=== PATIENT | male | born 1960 | race Caucasian/White ===

== ENCOUNTER 2021-06-21 15:08 | Inpatient (IN) | payer MEDICARE, OTHER ==
[~2021-06-21] VITALS: Ht 182.9 cm; Wt 83.9 kg
[2021-06-21 16:08] LABS: HEMATOCRIT. 32.1 % (42.0-52.0); HEMOGLOBIN. 10.8 g/dL (14.0-18.0); MEAN CORPUSCULAR HEMOGLOBIN 32.5 pg (28.0-32.0); MEAN CORPUSCULAR VOLUME 96.8 fL (80.0-94.0); MEAN PLATELET VOLUME 8.6 fl (7.4-10.4); PLATELET 96 x1000/uL (130-400); RED BLOOD CELL COUNT 3.31 mill/uL (4.7-6.1); RED CELL DISTRIBUTION WIDTH 14.7 % (11.6-14.6)
[2021-06-21 16:13] LABS: CHLORIDE 105 mEq/L (98-107)
[2021-06-21 16:16] LABS: ETHANOL BLOOD < 10 mg/dL
[2021-06-21 16:47] LABS: PLATELET ESTIMATE DECREASED
[2021-06-21] MEDS ORDERED: FUROSEMIDE 100MG/10ML VIAL IV STA (20:46)
[2021-06-21] MEDS ORDERED: DOCUSATE SODIUM 100MG CAPSULE PO PRN (21:00)
[2021-06-21] MEDS ORDERED: TETANUS, DIPHTHERIA, PERTUSSIS VAC/PF 0.5ML (>10YR OLD) IM ONE (21:00)
[2021-06-21] MEDS ORDERED: NITROGLYCERIN 0.4MG TABLET SL SL PRN (21:00)
[2021-06-21] MEDS ORDERED: DIPHENHYDRAMINE 50MG/ML VIAL IV PRN (21:00)
[2021-06-21] MEDS ORDERED: TRAMADOL 50MG TABLET PO PRN (21:00)
[2021-06-21] MEDS ORDERED: DEXTROSE 50% WATER 50ML SYRINGE IV ONE (21:00)
[2021-06-21] MEDS ORDERED: ONDANSETRON HCL 4MG/2ML INJ IV PRN (21:00)
[2021-06-21] MEDS ORDERED: CALCIUM GLUCONATE 100MG/ML 10ML VIAL IV ONE (21:00)
[2021-06-21] MEDS ORDERED: MAGNESIUM/ALUMINUM HYDROXIDE/SIMETHICONE 30ML UDC PO PRN (21:00)
[2021-06-21] MEDS ORDERED: DEXTROSE 50% WATER 50ML SYRINGE IV PRN (21:00)
[2021-06-21] MEDS ORDERED: GUAIFENESIN 200MG/10ML SUGAR FREE UDC PO PRN (21:00)
[2021-06-21] MEDS ORDERED: ALBUTEROL (0.083%) 2.5MG/3ML NEB HHN ONE (21:00)
[2021-06-21] MEDS ORDERED: IPRATROPIUM/ALBUTEROL 0.5-3(2.5)MG/3ML NEB NEB PRN (21:00)
[2021-06-21] MEDS ORDERED: INSULIN REGULAR (HUMULIN R) 300UNITS/3ML VIAL IV ONE (21:00)
[2021-06-21] MEDS ORDERED: CLONIDINE 0.1MG TABLET PO PRN (21:00)
[2021-06-21] MEDS ORDERED: ACETAMINOPHEN 325MG TABLET PO PRN ×2 (21:00)
[2021-06-21] MEDS ORDERED: SODIUM POLYSTYRENE SULFONATE 15 G/60 ML BOT PO NR (21:00)
[2021-06-21] MEDS ORDERED: ZOLPIDEM TARTRATE 5MG TABLET PO PRN (21:00)
[2021-06-21] MEDS ORDERED: ENOXAPARIN 100MG/ML SYR SUBCUT NR (21:28)
[2021-06-21 22:35] LABS: FOLIC ACID (FOLATE) SERUM >20 ng/mL ng/mL (>5.38)
[2021-06-21 22:46] LABS: VITAMIN B12 SERUM 1049 pg/mL (211-911)
[2021-06-22 00:42] LABS: CREATINE KINASE MB FRACTION 4.1 ng/mL (0.5-3.6)
[2021-06-22 01:00] VITALS: BP_SYST 116; BP_SYST 124; BP_DIAS 82
[2021-06-22 04:00] VITALS: BP 112/68
[2021-06-22] MEDS: BLOOD SUGAR DIAGNOSTIC STRIP TEST SCH ×3 (07:40→16:51)
[2021-06-22 08:00] VITALS: BP 130/60
[2021-06-22] MEDS: INSULIN LISPRO 100 UNITS/ML SUBCUT SCH ×4 (08:10→22:38)
[2021-06-22] MEDS: ASPIRIN 325MG EC TABLET PO SCH (08:22)
[2021-06-22] MEDS: SEVELAMER CARBONATE 800 MG TABLET PO SCH ×3 (08:22→17:28)
[2021-06-22 08:28] LABS: HEMATOCRIT. 31.4 % (42.0-52.0); HEMOGLOBIN. 10.5 g/dL (14.0-18.0); MEAN CORPUSCULAR HEMOGLOBIN 32.3 pg (28.0-32.0); MEAN CORPUSCULAR VOLUME 96.8 fL (80.0-94.0); MEAN PLATELET VOLUME 9.1 fl (7.4-10.4); PLATELET 95 x1000/uL (130-400); RED BLOOD CELL COUNT 3.25 mill/uL (4.7-6.1)
[2021-06-22 08:59] LABS: INR 1.2; PROTHROMBIN TIME 12.3 sec (9.6-11.0)
[2021-06-22] MEDS ORDERED: NALOXONE HCL 0.4MG/ML VIAL IV PRN (09:30)
[2021-06-22] MEDS ORDERED: ENOXAPARIN 100MG/ML SYR SUBCUT SCH (10:00)
[2021-06-22 11:13] LABS: CHLORIDE 105 mEq/L (98-107)
[2021-06-22 11:20] LABS: PHOSPHORUS 7.9 mg/dL (2.5-4.9)
[2021-06-22 11:22] LABS: CREATINE KINASE 171 IU/L (39-308)
[2021-06-22 11:26] LABS: CREATINE KINASE MB FRACTION 3.9 ng/mL (0.5-3.6)
[2021-06-22 12:00] VITALS: BP 114/74
[2021-06-22 16:00] VITALS: BP 105/76
[2021-06-22] MEDS: METOPROLOL TARTRATE 25MG TABLET PO SCH ×2 (17:00→21:07)
[2021-06-22 19:15] LABS: PLATELET ESTIMATE DECREASED
[2021-06-22 20:00] VITALS: BP 104/64
[2021-06-22] MEDS: FAMOTIDINE 20MG TABLET PO SCH (23:01)
[2021-06-23 00:05] VITALS: BP 108/70
[2021-06-23 04:00] VITALS: BP 106/63
[2021-06-23] MEDS: BLOOD SUGAR DIAGNOSTIC STRIP TEST SCH ×4 (07:33→21:00)
[2021-06-23 08:00] VITALS: BP 120/69
[2021-06-23 08:11] LABS: BASOPHILS % 0.8 % (0.0-2.0); EOSINOPHILS % 1.1 % (0.0-5.0); HEMATOCRIT. 31.1 % (42.0-52.0); HEMOGLOBIN. 10.3 g/dL (14.0-18.0); LYMPHOCYTES % 10.1 % (20.0-50.0); MEAN CORPUSCULAR HEMOGLOBIN 32.1 pg (28.0-32.0); MEAN CORPUSCULAR VOLUME 96.6 fL (80.0-94.0); MEAN PLATELET VOLUME 9.1 fl (7.4-10.4); PLATELET 90 x1000/uL (130-400); RED BLOOD CELL COUNT 3.22 mill/uL (4.7-6.1); RED CELL DISTRIBUTION WIDTH 14.8 % (11.6-14.6)
[2021-06-23] MEDS: ASPIRIN 325MG EC TABLET PO SCH (08:33)
[2021-06-23] MEDS: SEVELAMER CARBONATE 800 MG TABLET PO SCH ×3 (08:33→17:47)
[2021-06-23] MEDS: METOPROLOL TARTRATE 25MG TABLET PO SCH ×2 (08:33→21:00)
[2021-06-23] MEDS: INSULIN LISPRO 100 UNITS/ML SUBCUT SCH ×4 (08:36→21:20)
[2021-06-23] MEDS: ENOXAPARIN 100MG/ML SYR SUBCUT SCH (08:37)
[2021-06-23 08:43] LABS: PHOSPHORUS 5.9 mg/dL (2.5-4.9)
[2021-06-23 12:00] VITALS: BP 118/74
[2021-06-23 16:00] VITALS: BP 98/68
[2021-06-23 20:00] VITALS: BP 138/92
[2021-06-23] MEDS: FAMOTIDINE 20MG TABLET PO SCH (20:59)
[2021-06-24] VITALS: BP 111/68
[2021-06-24 04:00] VITALS: BP 125/97
[2021-06-24] MEDS: BLOOD SUGAR DIAGNOSTIC STRIP TEST SCH ×4 (07:18→21:00)
[2021-06-24 08:00] VITALS: BP 127/88
[2021-06-24] MEDS: SEVELAMER CARBONATE 800 MG TABLET PO SCH ×3 (08:46→17:39)
[2021-06-24] MEDS: INSULIN LISPRO 100 UNITS/ML SUBCUT SCH ×4 (08:47→21:30)
[2021-06-24] MEDS: METOPROLOL TARTRATE 25MG TABLET PO SCH ×2 (09:27→21:30)
[2021-06-24] MEDS: ASPIRIN 325MG EC TABLET PO SCH (09:27)
[2021-06-24] MEDS: ENOXAPARIN 100MG/ML SYR SUBCUT SCH (09:28)
[2021-06-24 12:00] VITALS: BP 121/85
[2021-06-24] MEDS: BUMETANIDE 1MG TABLET PO SCH ×2 (13:21→17:18)
[2021-06-24 16:00] VITALS: BP 123/74
[2021-06-24 20:00] VITALS: BP 150/87
[2021-06-24] MEDS: OMEPRAZOLE 20MG CAPSULE EXTENDED RELEASE PO SCH (21:29)
[2021-06-24 21:32] LABS: HEMATOCRIT 28.8 % (42.0-52.0); HEMOGLOBIN 9.7 g/dL (14.0-18.0)
[2021-06-24 21:57] LABS: HEPATITIS B SURFACE ANTIGEN NEGATIVE
[2021-06-25] VITALS: BP 111/71
[2021-06-25] MEDS: BLOOD SUGAR DIAGNOSTIC STRIP TEST SCH ×4 (07:40→20:27)
[2021-06-25] MEDS: INSULIN LISPRO 100 UNITS/ML SUBCUT SCH ×4 (08:10→20:31)
[2021-06-25] MEDS: METOPROLOL TARTRATE 25MG TABLET PO SCH (09:00)
[2021-06-25] MEDS: BUMETANIDE 1MG TABLET PO SCH ×2 (09:00→17:00)
[2021-06-25] MEDS: OMEPRAZOLE 20MG CAPSULE EXTENDED RELEASE PO SCH ×2 (09:02→20:26)
[2021-06-25] MEDS: SEVELAMER CARBONATE 800 MG TABLET PO SCH ×3 (09:02→18:59)
[2021-06-25 12:00] VITALS: BP 139/82
[2021-06-25 16:00] VITALS: BP 137/92
[2021-06-25 16:53] LABS: BASOPHILS % 0.8 % (0.0-2.0); EOSINOPHILS % 0.6 % (0.0-5.0); HEMATOCRIT. 31.8 % (42.0-52.0); HEMOGLOBIN. 10.2 g/dL (14.0-18.0); LYMPHOCYTES % 8.7 % (20.0-50.0); MEAN CORPUSCULAR VOLUME 97.1 fL (80.0-94.0); MEAN PLATELET VOLUME 10.4 fl (7.4-10.4); MONOCYTES % 12.6 % (2.0-8.0); NEUTROPHILS % 77.3 % (40.0-76.0); PLATELET 86 x1000/uL (130-400); RED BLOOD CELL COUNT 3.28 mill/uL (4.7-6.1)
[2021-06-25 17:08] LABS: BASOPHILS % 0.5 % (0.0-2.0); EOSINOPHILS % 0.5 % (0.0-5.0); HEMATOCRIT. 32.9 % (42.0-52.0); HEMOGLOBIN. 10.4 g/dL (14.0-18.0); LYMPHOCYTES % 8.2 % (20.0-50.0); MEAN CORPUSCULAR HEMOGLOBIN 30.6 pg (28.0-32.0); MEAN PLATELET VOLUME 10.2 fl (7.4-10.4); MONOCYTES % 7.2 % (2.0-8.0); NEUTROPHILS % 83.6 % (40.0-76.0); PLATELET 95 x1000/uL (130-400); RED CELL DISTRIBUTION WIDTH 14.9 % (11.6-14.6)
[2021-06-25 20:00] VITALS: BP 105/84
[2021-06-25] MEDS: METOPROLOL TARTRATE 50MG TABLET PO SCH (20:26)
[2021-06-26 00:05] VITALS: BP 129/77
[2021-06-26 02:04] LABS: HEMATOCRIT 28.6 % (42.0-52.0); HEMOGLOBIN 9.7 g/dL (14.0-18.0)
[2021-06-26 04:00] VITALS: BP 131/84
[2021-06-26] MEDS: BLOOD SUGAR DIAGNOSTIC STRIP TEST SCH ×4 (05:33→20:34)
[2021-06-26] MEDS: INSULIN LISPRO 100 UNITS/ML SUBCUT SCH ×4 (05:36→20:42)
[2021-06-26 07:31] LABS: BASOPHILS % 0.7 % (0.0-2.0); HEMATOCRIT. 30.4 % (42.0-52.0); HEMOGLOBIN. 9.9 g/dL (14.0-18.0); LYMPHOCYTES % 7.1 % (20.0-50.0); MEAN CORPUSCULAR HEMOGLOBIN 31.2 pg (28.0-32.0); MEAN CORPUSCULAR VOLUME 95.8 fL (80.0-94.0); MEAN PLATELET VOLUME 10.5 fl (7.4-10.4); MONOCYTES % 9.6 % (2.0-8.0); NEUTROPHILS % 82.6 % (40.0-76.0); PLATELET 97 x1000/uL (130-400); RED BLOOD CELL COUNT 3.17 mill/uL (4.7-6.1); RED CELL DISTRIBUTION WIDTH 14.9 % (11.6-14.6)
[2021-06-26] MEDS: OMEPRAZOLE 20MG CAPSULE EXTENDED RELEASE PO SCH ×2 (08:24→20:32)
[2021-06-26] MEDS: SEVELAMER CARBONATE 800 MG TABLET PO SCH ×3 (08:24→18:44)
[2021-06-26] MEDS: BUMETANIDE 1MG TABLET PO SCH ×2 (08:24→18:44)
[2021-06-26] MEDS: METOPROLOL TARTRATE 50MG TABLET PO SCH (08:25)
[2021-06-26 12:00] VITALS: BP 134/87
[2021-06-26] MEDS ORDERED: AMIODARONE HCL 50MG/ML 3ML VIAL IV ONE (13:15)
[2021-06-26] MEDS: AMIODARONE HCL 200 MG TABLET PO SCH ×2 (13:51→20:34)
[2021-06-26] MEDS ORDERED: AMIODARONE HCL 150 MG in DEXT 5% WATER 100 ML IV NR (14:30)
[2021-06-26 16:00] VITALS: BP 94/70
[2021-06-26 20:04] VITALS: BP 110/72
[2021-06-26 20:12] LABS: HEMATOCRIT 29.8 % (42.0-52.0); HEMOGLOBIN 9.7 g/dL (14.0-18.0)
[2021-06-26] MEDS: METOPROLOL TARTRATE 100MG TABLET PO SCH (20:33)
[2021-06-27 00:05] VITALS: BP 118/78
[2021-06-27 04:00] VITALS: BP 114/73
[2021-06-27] MEDS: INSULIN LISPRO 100 UNITS/ML SUBCUT SCH ×4 (05:57→20:44)
[2021-06-27] MEDS: BLOOD SUGAR DIAGNOSTIC STRIP TEST SCH ×4 (05:57→20:39)
[2021-06-27 07:54] LABS: BASOPHILS % 0.5 % (0.0-2.0); EOSINOPHILS % 0.2 % (0.0-5.0); HEMATOCRIT. 31.9 % (42.0-52.0); HEMOGLOBIN. 10.5 g/dL (14.0-18.0); LYMPHOCYTES % 9.5 % (20.0-50.0); MEAN CORPUSCULAR HEMOGLOBIN 31.7 pg (28.0-32.0); MEAN CORPUSCULAR VOLUME 96.2 fL (80.0-94.0); MEAN PLATELET VOLUME 11.5 fl (7.4-10.4); MONOCYTES % 12.9 % (2.0-8.0); NEUTROPHILS % 76.9 % (40.0-76.0); PLATELET 119 x1000/uL (130-400); RED BLOOD CELL COUNT 3.32 mill/uL (4.7-6.1); RED CELL DISTRIBUTION WIDTH 15.2 % (11.6-14.6)
[2021-06-27 08:00] VITALS: BP 115/79
[2021-06-27] MEDS: OMEPRAZOLE 20MG CAPSULE EXTENDED RELEASE PO SCH ×2 (08:51→20:38)
[2021-06-27] MEDS: SEVELAMER CARBONATE 800 MG TABLET PO SCH ×3 (08:51→17:55)
[2021-06-27] MEDS: AMIODARONE HCL 200 MG TABLET PO SCH ×2 (08:53→20:39)
[2021-06-27] MEDS ORDERED: SODIUM POLYSTYRENE SULFONATE 15 G/60 ML BOT PO NR (11:30)
[2021-06-27 12:00] VITALS: BP 121/76
[2021-06-27 12:12] LABS: HEMATOCRIT 29.6 % (42.0-52.0); HEMOGLOBIN 9.5 g/dL (14.0-18.0)
[2021-06-27] MEDS: METOPROLOL TARTRATE 100MG TABLET PO SCH ×2 (12:16→20:38)
[2021-06-27] MEDS: BUMETANIDE 1MG TABLET PO SCH (12:16)
[2021-06-27 16:00] VITALS: BP 111/61
[2021-06-27 20:00] VITALS: BP 150/72
[2021-06-27 20:35] LABS: HEMATOCRIT 32.6 % (42.0-52.0); HEMOGLOBIN 10.5 g/dL (14.0-18.0)
[2021-06-28 00:05] VITALS: BP_SYST 129; BP_SYST 137; BP_DIAS 73; BP_DIAS 76
[2021-06-28 04:00] VITALS: BP 133/81
[2021-06-28] MEDS: BLOOD SUGAR DIAGNOSTIC STRIP TEST SCH ×4 (05:34→21:00)
[2021-06-28] MEDS: INSULIN LISPRO 100 UNITS/ML SUBCUT SCH ×4 (05:37→21:00)
[2021-06-28 06:10] LABS: HEMATOCRIT. 27.5 % (42.0-52.0); HEMOGLOBIN. 9.2 g/dL (14.0-18.0); MEAN CORPUSCULAR VOLUME 95.7 fL (80.0-94.0); MEAN PLATELET VOLUME 11.1 fl (7.4-10.4); PLATELET 119 x1000/uL (130-400); RED BLOOD CELL COUNT 2.87 mill/uL (4.7-6.1); RED CELL DISTRIBUTION WIDTH 15.2 % (11.6-14.6)
[2021-06-28 08:00] VITALS: BP 106/71
[2021-06-28] MEDS: SEVELAMER CARBONATE 800 MG TABLET PO SCH ×3 (09:57→19:11)
[2021-06-28] MEDS: AMIODARONE HCL 200 MG TABLET PO SCH ×2 (09:57→22:38)
[2021-06-28] MEDS: METOPROLOL TARTRATE 100MG TABLET PO SCH ×2 (09:57→22:37)
[2021-06-28] MEDS: OMEPRAZOLE 20MG CAPSULE EXTENDED RELEASE PO SCH ×2 (09:57→22:37)
[2021-06-28 12:00] VITALS: BP 110/86
[2021-06-28 12:13] LABS: NUCLEATED RED BLOOD CELLS 1 /100 WBC
[2021-06-28 12:14] LABS: PLATELET ESTIMATE DECREASED
[2021-06-28 16:00] VITALS: BP 128/73
[2021-06-28 20:00] VITALS: BP 122/64
[2021-06-28] MEDS: EPOETIN ALFA-EPBX 4,000 UNIT/ML VIAL SUBCUT SCH (23:51)
[2021-06-29] VITALS: BP 125/82
[2021-06-29 04:00] VITALS: BP 106/72
[2021-06-29 05:25] LABS: BASOPHILS % 0.6 % (0.0-2.0); EOSINOPHILS % 0.4 % (0.0-5.0); HEMATOCRIT. 28.6 % (42.0-52.0); HEMOGLOBIN. 9.7 g/dL (14.0-18.0); LYMPHOCYTES % 10.5 % (20.0-50.0); MEAN CORPUSCULAR HEMOGLOBIN 32.1 pg (28.0-32.0); MEAN PLATELET VOLUME 10.8 fl (7.4-10.4); MONOCYTES % 11.2 % (2.0-8.0); NEUTROPHILS % 77.3 % (40.0-76.0); PLATELET 149 x1000/uL (130-400); RED BLOOD CELL COUNT 3.04 mill/uL (4.7-6.1); RED CELL DISTRIBUTION WIDTH 14.9 % (11.6-14.6)
[2021-06-29] MEDS: INSULIN LISPRO 100 UNITS/ML SUBCUT SCH ×4 (07:04→21:09)
[2021-06-29] MEDS: BLOOD SUGAR DIAGNOSTIC STRIP TEST SCH ×4 (07:04→21:09)
[2021-06-29 08:00] VITALS: BP 127/85
[2021-06-29] MEDS: OMEPRAZOLE 20MG CAPSULE EXTENDED RELEASE PO SCH ×2 (08:44→21:08)
[2021-06-29] MEDS: SEVELAMER CARBONATE 800 MG TABLET PO SCH ×3 (08:45→18:06)
[2021-06-29] MEDS: AMIODARONE HCL 200 MG TABLET PO SCH ×2 (08:45→21:20)
[2021-06-29] MEDS: METOPROLOL TARTRATE 100MG TABLET PO SCH ×2 (08:45→21:00)
[2021-06-29 12:00] VITALS: BP 127/67
[2021-06-29] MEDS ORDERED: AMIODARONE HCL 150 MG in DEXT 5% WATER 100 ML IV NR (15:00)
[2021-06-29 16:00] VITALS: BP 113/68
[2021-06-29 20:00] VITALS: BP 108/75
[2021-06-30] VITALS: BP 106/61
[2021-06-30 04:00] VITALS: BP 118/82
[2021-06-30] MEDS: BLOOD SUGAR DIAGNOSTIC STRIP TEST SCH ×4 (07:40→21:22)
[2021-06-30 08:01] LABS: BASOPHILS % 0.3 % (0.0-2.0); EOSINOPHILS % 0.2 % (0.0-5.0); HEMATOCRIT. 30.2 % (42.0-52.0); HEMOGLOBIN. 9.9 g/dL (14.0-18.0); MEAN CORPUSCULAR HEMOGLOBIN 31.6 pg (28.0-32.0); MEAN PLATELET VOLUME 10.8 fl (7.4-10.4); MONOCYTES % 11.5 % (2.0-8.0); PLATELET 167 x1000/uL (130-400); RED BLOOD CELL COUNT 3.14 mill/uL (4.7-6.1); RED CELL DISTRIBUTION WIDTH 14.9 % (11.6-14.6)
[2021-06-30] MEDS: METOPROLOL TARTRATE 100MG TABLET PO SCH ×2 (09:39→21:21)
[2021-06-30] MEDS: SEVELAMER CARBONATE 800 MG TABLET PO SCH ×3 (09:39→18:52)
[2021-06-30] MEDS: OMEPRAZOLE 20MG CAPSULE EXTENDED RELEASE PO SCH ×2 (09:40→21:20)
[2021-06-30] MEDS: AMIODARONE HCL 200 MG TABLET PO SCH ×2 (09:40→21:20)
[2021-06-30] MEDS: INSULIN LISPRO 100 UNITS/ML SUBCUT SCH ×4 (09:41→21:22)
[2021-06-30 12:00] VITALS: BP 120/67
[2021-06-30 16:00] VITALS: BP 118/70
[2021-06-30 20:00] VITALS: BP 98/57
[2021-06-30] MEDS: EPOETIN ALFA-EPBX 4,000 UNIT/ML VIAL SUBCUT SCH (21:00)
[2021-07-01 00:40] VITALS: BP 99/62
[2021-07-01 04:00] VITALS: BP 98/56
[2021-07-01] MEDS: BLOOD SUGAR DIAGNOSTIC STRIP TEST SCH ×4 (07:40→21:27)
[2021-07-01 08:00] VITALS: BP 106/67
[2021-07-01 08:13] LABS: HEMATOCRIT. 30.2 % (42.0-52.0); HEMOGLOBIN. 10.1 g/dL (14.0-18.0); MEAN CORPUSCULAR HEMOGLOBIN 31.9 pg (28.0-32.0); MEAN CORPUSCULAR VOLUME 95.4 fL (80.0-94.0); MEAN PLATELET VOLUME 10.5 fl (7.4-10.4); PLATELET 181 x1000/uL (130-400); RED BLOOD CELL COUNT 3.16 mill/uL (4.7-6.1)
[2021-07-01] MEDS: METOPROLOL TARTRATE 100MG TABLET PO SCH ×2 (09:00→21:00)
[2021-07-01] MEDS: OMEPRAZOLE 20MG CAPSULE EXTENDED RELEASE PO SCH ×2 (09:21→21:33)
[2021-07-01] MEDS: SEVELAMER CARBONATE 800 MG TABLET PO SCH ×3 (09:21→17:30)
[2021-07-01] MEDS: INSULIN LISPRO 100 UNITS/ML SUBCUT SCH ×4 (09:22→21:32)
[2021-07-01] MEDS: AMIODARONE HCL 200 MG TABLET PO SCH ×2 (09:27→21:33)
[2021-07-01 12:00] VITALS: BP 111/74
[2021-07-01 13:24] LABS: NUCLEATED RED BLOOD CELLS 5 /100 WBC
[2021-07-01 13:27] LABS: PLATELET ESTIMATE NORMAL
[2021-07-01 16:00] VITALS: BP 108/68
[2021-07-01 20:00] VITALS: BP 97/73
[2021-07-02] VITALS: BP 100/55
[2021-07-02 04:00] VITALS: BP 100/55
[2021-07-02] MEDS: BLOOD SUGAR DIAGNOSTIC STRIP TEST SCH ×4 (06:34→21:55)
[2021-07-02] MEDS: OMEPRAZOLE 20MG CAPSULE EXTENDED RELEASE PO SCH ×2 (06:35→21:54)
[2021-07-02] MEDS: INSULIN LISPRO 100 UNITS/ML SUBCUT SCH ×4 (06:37→21:53)
[2021-07-02 08:00] VITALS: BP 115/64
[2021-07-02] MEDS: SEVELAMER CARBONATE 800 MG TABLET PO SCH ×3 (08:49→17:38)
[2021-07-02] MEDS: AMIODARONE HCL 200 MG TABLET PO SCH ×2 (08:49→21:54)
[2021-07-02] MEDS: METOPROLOL TARTRATE 100MG TABLET PO SCH ×2 (08:50→21:54)
[2021-07-02 12:00] VITALS: BP 96/56
[2021-07-02 16:00] VITALS: BP 94/52
[2021-07-02] MEDS: DOCUSATE SODIUM 100MG CAPSULE PO SCH ×2 (17:43→17:44)
[2021-07-02 20:00] VITALS: BP 107/58
[2021-07-02] MEDS: SENNOSIDES 8.6MG TABLET PO SCH (21:54)
[2021-07-03] VITALS: BP 105/73
[2021-07-03 04:00] VITALS: BP 106/63
[2021-07-03] MEDS: BLOOD SUGAR DIAGNOSTIC STRIP TEST SCH ×4 (07:36→21:00)
[2021-07-03 08:00] VITALS: BP 138/75
[2021-07-03] MEDS: DOCUSATE SODIUM 100MG CAPSULE PO SCH ×2 (08:41→17:00)
[2021-07-03] MEDS: SEVELAMER CARBONATE 800 MG TABLET PO SCH ×3 (08:41→17:44)
[2021-07-03] MEDS: METOPROLOL TARTRATE 100MG TABLET PO SCH ×2 (08:41→22:52)
[2021-07-03] MEDS: OMEPRAZOLE 20MG CAPSULE EXTENDED RELEASE PO SCH ×2 (08:41→22:51)
[2021-07-03] MEDS: INSULIN LISPRO 100 UNITS/ML SUBCUT SCH ×4 (08:41→22:51)
[2021-07-03] MEDS: AMIODARONE HCL 200 MG TABLET PO SCH ×2 (08:48→22:51)
[2021-07-03 12:00] VITALS: BP 105/67
[2021-07-03 16:00] VITALS: BP 109/64
[2021-07-03 20:00] VITALS: BP 120/76
[2021-07-03] MEDS: SENNOSIDES 8.6MG TABLET PO SCH (21:00)
[2021-07-04] VITALS: BP 125/74
[2021-07-04 04:00] VITALS: BP 122/71
[2021-07-04] MEDS: INSULIN LISPRO 100 UNITS/ML SUBCUT SCH (06:34)
[2021-07-04] MEDS: BLOOD SUGAR DIAGNOSTIC STRIP TEST SCH (07:40)
[2021-07-04 08:00] VITALS: BP 140/78
[2021-07-04] MEDS: OMEPRAZOLE 20MG CAPSULE EXTENDED RELEASE PO SCH (08:38)
[2021-07-04] MEDS: DOCUSATE SODIUM 100MG CAPSULE PO SCH (08:38)
[2021-07-04] MEDS: METOPROLOL TARTRATE 100MG TABLET PO SCH (08:39)
[2021-07-04] MEDS: SEVELAMER CARBONATE 800 MG TABLET PO SCH (08:39)
[2021-07-04] MEDS: AMIODARONE HCL 200 MG TABLET PO SCH (08:39)
[2021-07-04 11:10] VITALS: BP 140/78
== END 2021-07-04 13:00 | disposition home or self-care (01) | DRG 177 ==
LOC: ER 15:08 → SUPCPDRO 20:51 → 7WST 21:00 → EDBEDREQ 21:03 → EDBEDREQTM 21:03 → ENRESERV 22:23 → 7WST 07-03 15:04
PROVIDERS: ADMIT Internal Medicine; ATTEND Internal Medicine
PROC: 5A1D70Z Performance of Urinary Filtration, Intermittent, Less than 6 Hours Per Day (ICD-10-PCS; principal; 2021-06-22)
PROC: 5A1D70Z Performance of Urinary Filtration, Intermittent, Less than 6 Hours Per Day (ICD-10-PCS; 2021-06-28)
PROC: 5A1D70Z Performance of Urinary Filtration, Intermittent, Less than 6 Hours Per Day (ICD-10-PCS; 2021-07-03)
DX: U07.1 COVID-19 (principal); I21.4 Non-ST elevation (NSTEMI) myocardial infarction; I50.43 Acute on chronic combined systolic (congestive) and diastolic (congestive) heart failure; N18.6 End stage renal disease; I13.2 Hypertensive heart and chronic kidney disease with heart failure and with stage 5 chronic kidney disease, or end stage renal disease; I48.20 Chronic atrial fibrillation, unspecified; E46 Unspecified protein-calorie malnutrition; K92.2 Gastrointestinal hemorrhage, unspecified; I47.2 Ventricular tachycardia; I42.0 Dilated cardiomyopathy; G93.40 Encephalopathy, unspecified; E87.5 Hyperkalemia; E11.22 Type 2 diabetes mellitus with diabetic chronic kidney disease; G47.33 Obstructive sleep apnea (adult) (pediatric); E78.5 Hyperlipidemia, unspecified; E83.39 Other disorders of phosphorus metabolism; D63.8 Anemia in other chronic diseases classified elsewhere; D69.6 Thrombocytopenia, unspecified; E11.65 Type 2 diabetes mellitus with hyperglycemia; I25.10 Atherosclerotic heart disease of native coronary artery without angina pectoris; Z68.25 Body mass index [BMI] 25.0-25.9, adult; Z99.2 Dependence on renal dialysis; Z91.15 Patient's noncompliance with renal dialysis; Z79.01 Long term (current) use of anticoagulants; Z95.0 Presence of cardiac pacemaker; I25.2 Old myocardial infarction; Z95.1 Presence of aortocoronary bypass graft; Z95.2 Presence of prosthetic heart valve; Z79.02 Long term (current) use of antithrombotics/antiplatelets; Z86.79 Personal history of other diseases of the circulatory system; D53.9 Nutritional anemia, unspecified; S81.801A Unspecified open wound, right lower leg, initial encounter
CPT/HCPCS: 36415; 71045; 73590; 78278; 80048; 80053; 80320; 82270; 82550; 82553; 82607; 82728; 82746; 82962; 83036; 83540; 83550; 83615; 83735; 83880; 84100; 84145; 84443; 84484; 85014; 85018; 85025; 85044; 86705; 86709; 86803; 86850; 86900; 86920; 87340; 87426; 93005; 93970; 97162; 97530; 99291; A9560; C1893; J0282; J0610; J0885; J1650; J1815; J7060; G0480